=== PATIENT | male | born 1940 | race Hispanic/Latino ===

== ENCOUNTER 2016-06-22 09:05 | Emergency (ER) | payer MEDICARE ==
[2016-06-22 09:06] VITALS: BMI 23.6
[2016-06-22 09:57] VITALS: RESP 18; TEMP 98.2; O2SAT 100
[2016-06-22 10:36] LABS: ADD MANUAL DIFF? NO
--- NOTE | 2016-06-22 10:38 | ED PDOC ---
Arrival/HPI <Shanna Velasco PA-C - Last Filed: 06/22/16 11:18> - General Historian: Patient - History of Present Illness Time/Duration: < week Symptom Onset: Gradual Symptom Course: Worsening Severity Level: Mild Activities at Onset: Rest Context: Home <Daniel Keenan - Last Filed: 06/22/16 12:28> - General Chief Complaint: Weakness/Neurological Deficit Time Seen by Provider: 06/22/16 09:32 - History of Present Illness Narrative History of Present Illness (Text): Of note, patient is stating that he can not stay in the hospital for admission or observation to receive transfusion. (Shanna Velasco PA-C) 06/22/16 10:33 Fco Alvarez is a 76 year old male, whose past medical history includes anemia and GI bleeds, who presents to the emergency room complaining of generalized weakness for 2-3 days. Patient states that he has also been feeling tired. Patient notes that he has had eight transfusions in the past, the most recent one being 2 months ago. Patient hemoglobin levels are around 6. Patient also notes that his anemia is from the GI bleeds. He has had workups for it by a GI doctor with endoscopies and colonoscopies but a certain part of his colon just cannot get treated. Patient denies any dark stool, black stool, nausea, vomiting , abdominal pain, fever, or any other complaint at this time. (Daniel Keenan) Past Medical History - Provider Review Nursing Documentation Reviewed: Yes - Past History Past History: No Previous - Infectious Disease Hx of Infectious Diseases: None - Tetanus Immunization Tetanus Immunization: Unknown - Cardiac Hx Cardiac Disorders: Yes Hx Angina: Yes Hx CT: Yes (x 2) - Pulmonary Hx Respiratory Disorders: No - Neurological Hx Neurological Disorder: No - HEENT Hx HEENT Disorder: No - Renal Hx Renal Disorder: No - Endocrine/Metabolic Hx Endocrine Disorders: No - Hematological/Oncological Hx Blood Disorders: Yes Hx Anemia: Yes Hx Blood Transfusions: Yes Hx Blood Transfusion Reaction: No - Integumentary Hx Dermatological Disorder: No - Musculoskeletal/Rheumatological Hx Musculoskeletal Disorders: No - Gastrointestinal Hx Gastrointestinal Disorders: Yes Other/Comment: GI bleed - Genitourinary/Gynecological Hx Genitourinary Disorders: No - Psychiatric Hx Psychophysiologic Disorder: No Hx Substance Use: No - Surgical History 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) - Anesthesia Hx Anesthesia: Yes Hx Anesthesia Reactions: No Hx Malignant Hyperthermia: No - Suicidal Assessment Feels Threatened In Home Enviroment: No <Daniel Keenan - Last Filed: 06/22/16 12:28> Family/Social History - Physician Review Nursing Documentation Reviewed: Yes Family/Social History: No Known Family HX Smoking Status: Light Smoker < 10 Cigarettes Daily Hx Alcohol Use: Yes (social) Amount per day: 2 Hx Substance Use: No Hx Substance Use Treatment: No <Daniel Keenan - Last Filed: 06/22/16 12:28> Allergies/Home Meds <Shanna Velasco PA-C - Last Filed: 06/22/16 11:18> <Daniel Keenan - Last Filed: 06/22/16 12:28> Allergies/Adverse Reactions: Allergies shellfish derived Allergy (Severe, Verified 05/09/16 09:38) ANAPHYLAXIS iodine Allergy (Intermediate, Verified 05/09/16 09:38) SWELLING Iodine and Iodide Containing Produc Allergy (Intermediate, Verified 05/09/16 09: 38) SWELLING black pepper Allergy (Intermediate, Uncoded 05/09/16 09:38) SWELLING Home Medications: Home Meds Medication Instructions Recorded Confirmed Benazepril-Hctz 10-12.5 mg Tab 1 tab PO QAM 07/28/15 05/09/16 Lovastatin [Lovastatin] 20 mg PO QPM 07/28/15 05/09/16 Metoprolol Tartrate [Lopressor] 25 mg PO BID 07/28/15 05/09/16 raNITIdine 150 mg PO HS 12/20/15 05/09/16 Aspirin [Ecotrin] 81 mg PO DAILY 12/29/15 05/09/16 Docusate [Colace] 100 mg PO BID 02/12/16 05/09/16 Sucralfate [Carafate] 1 gm PO TID 02/12/16 05/09/16 Review of Systems - Review of Systems Constitutional: Other (Generalized weakness) Eyes: absent: Vision Changes ENT: absent: Hearing Changes Respiratory: absent: SOB, Cough Cardiovascular: absent: Chest Pain Gastrointestinal: absent: Abdominal Pain Genitourinary Male: absent: Urinary Output Changes Musculoskeletal: absent: Back Pain, Neck Pain Skin: absent: Rash Neurological: absent: Headache Endocrine: absent: Polyuria Hemo/Lymphatic: absent: Easy Bleeding Psychiatric: absent: Depression <Daniel Keenan - Last Filed: 06/22/16 12:28> Physical Exam Vital Signs Reviewed: Yes Temperature: Afebrile Blood Pressure: Normal Pulse: Tachycardic Respiratory Rate: Normal Appearance: Positive for: Well-Appearing, Non-Toxic, Comfortable Pain Distress: None Mental Status: Positive for: Alert and Oriented X 3 - Systems Exam Head: Present: Atraumatic, Normocephalic Pupils: Present: PERRL Extroacular Muscles: Present: EOMI Conjunctiva: Present: Other (conjunctiva pale) Mouth: Present: Moist Mucous Membranes Neck: Present: Normal Range of Motion Respiratory/Chest: Present: Clear to Auscultation, Good Air Exchange. No: Respiratory Distress, Accessory Muscle Use Cardiovascular: Present: Regular Rate and Rhythm, Normal S1, S2. No: Murmurs Abdomen: Present: Normal Bowel Sounds. No: Tenderness, Distention, Peritoneal Signs Back: Present: Normal Inspection Upper Extremity: Present: Normal Inspection. No: Cyanosis, Edema Lower Extremity: Present: Normal Inspection. No: Edema Neurological: Present: GCS=15, CN II-XII Intact, Speech Normal Skin: Present: Pale Psychiatric: Present: Alert, Oriented x 3, Normal Insight, Normal Concentration <Daniel Keenan - Last Filed: 06/22/16 12:28> Vital Signs Temp Pulse Resp BP Pulse Ox 06/22/16 11:30 91 H 18 149/71 100 06/22/16 09:54 98.2 F 64 18 147/69 100 06/22/16 09:21 98.6 F 91 H 20 133/68 99 Medical Decision Making <Shanna Velasco PA-C - Last Filed: 06/22/16 11:18> <Daniel Keenan - Last Filed: 06/22/16 12:28> ED Course and Treatment: 06/22/16 11:18 76 yo M presents with generalized weakness and fatigue, has a h/o anemia due to GI bleed. Patient is stating though that he can not stay in the hospital for admission or observation to receive transfusion. Plan: -- Labs CBC: Hgb is 6.3. Patient made aware, advised of the need for a transfusion and that he will need to stay for inpatient 24h observation in order to receive 2 units of PRBCs, which the patient is refusing to stay. States that his is sick at home and no one can care for her, he has no one he can call and attend to her while he stays in the hospital for 1 night to receive transfusion. States that he must leave and is refusing further treatment, which is against my medical advice. Patient refuses further care, evaluation or treatment in the ER. Patient informed of the reasons for the following and planned treatment, which patient understands, however still refuses. Patient informed of the risk and benefits of treatment. Informed that the risk could include worsening of current conditions, undiagnosed conditions, disability or even . Patient understands the following risk and the benefits of treatment. Patient has the capacity to make decisions and still refuses treatment by RN, ANTWON and ER MD. Patient encouraged to return to the ER at any time and to follow up with pmd. ( Rod NIXON,Shanna Tariq) - Lab Interpretations Lab Results: 06/22/16 09:50 06/22/16 09:50 Lab Results 06/22/16 09:50: WBC 5.2, RBC 2.62 L, Hgb 6.3 L*, Hct 20.7 L*, MCV 79.0 L, MCH 24.0 L, MCHC 30.4 L, RDW 17.6 H, Plt Count 212, MPV 10.1, Gran % 84.4 H, Lymph % (Auto) 8.5 L, Irwin % (Auto) 4.1, Eos % (Auto) 1.6, Baso % (Auto) 1.4, Gran # 4.36, Lymph # 0.4 L, Irwin # 0.2, Eos # 0.1, Baso # 0.07, Sodium 140, Potassium 3.7, Chloride 103, Carbon Dioxide 28, Anion Gap 13, BUN 26 H, Creatinine 1.4, Est GFR ( Amer) 60, Est GFR (Non-Af Amer) 49, Random Glucose 140 H, Calcium 9.3, Total Bilirubin 0.4, AST 19, ALT 13, Alkaline Phosphatase 73, Total Protein 7.6, Albumin 4.1, Globulin 3.5, Albumin/Globulin Ratio 1.2, Blood Type Cancelled, Antibody Screen Cancelled, BBK History Checked Cancelled - PA / DELINQUENT TAX COLLECTOR ASSISTANT / Resident Statement / has reviewed & agrees with the documentation as recorded. <Shanna Velasco PA-C - Last Filed: 06/22/16 11:18> - PA / DELINQUENT TAX COLLECTOR ASSISTANT / Resident Statement / has reviewed & agrees with the documentation as recorded. <Dainel Keenan - Last Filed: 06/22/16 12:28> Disposition/Present on Arrival - Present on Arrival Any Indicators Present on Arrival: No History of DVT/PE: No History of Uncontrolled Diabetes: No Urinary Catheter: No History of Decub. Ulcer: No - Disposition Have Diagnosis and Disposition been Completed?: Yes Disposition Time: 11:24 Patient Plan: Other (AMA) <Shanna Velasco PA-C - Last Filed: 06/22/16 11:18> - Present on Arrival History of DVT/PE: No History of Uncontrolled Diabetes: No Urinary Catheter: No History of Decub. Ulcer: No History Surgical Site Infection Following: None <Daniel Keenan - Last Filed: 06/22/16 12:28> - Disposition Diagnosis: Anemia, History of GI bleed Disposition: AGAINST MEDICAL ADVICE Condition: STABLE Discharge Instructions (ExitCare): Anemia (ED), Gastrointestinal Bleeding (ED) , Against Medical Advice (ED) Print Language: MACEDONIAN Additional Instructions: Return to the emergency room at any time for any new or worsening symptoms or if you decide to change your mind. Follow up with primary care physician in 1-2 days without fail.
[2016-06-22 10:41] LABS: BASO # 0.07 K/mm3 (0.0-2.0); BASO % 1.4 % (0.0-3.0); EOS # 0.1 (0.0-0.7); EOS % 1.6 % (1.5-5.0); GRAN # 4.36 (1.4-6.5); GRAN % 84.4 % (50.0-68.0); LYMPH # 0.4 (1.2-3.4); LYMPH % 8.5 % (22.0-35.0); MEAN CORPUSCULAR HGB CONC 30.4 g/dl (31.0-37.0); MEAN PLATELET VOLUME 10.1 fl (7.0-11.0); MONO # 0.2 (0.1-0.6); MONO % 4.1 % (1.0-6.0); PLATELET COUNT 212 10^3/uL (120.0-450.0); RED CELL DISTRIBUTION WIDTH 17.6 % (11.5-14.5); WHITE BLOOD COUNT 5.2 10^3/ul (4.5-11.0)
[2016-06-22 10:57] LABS: ALB/GLOB RATIO 1.2 (1.1-1.8); BILIRUBIN,TOTAL 0.4 mg/dL (0.2-1.3); CALCIUM 9.3 mg/dL (8.4-10.5); POTASSIUM 3.7 mmol/L (3.6-5.0); TOTAL PROTEIN 7.6 g/dL (5.8-8.3)
[2016-06-22 10:58] LABS: HEMATOCRIT 20.7 % (42.0-52.0)
[2016-06-22 11:30] VITALS: BP 149/71; PULSE 91
[2016-06-22 13:49] LABS: EOSINOPHIL 3 % (0.0-3.0); NEUTROPHIL 85 % (50.0-70.0)
[2016-06-22 13:50] LABS: ANISOCYTOSIS SLIGHT; HYPOCHROMIA 2+; MICROCYTOSIS 3+; PLATELET ESTIMATE NORMAL (NORMAL); POLYCHROMASIA SLIGHT
[2016-06-22 13:51] LABS: OVALOCYTES SLIGHT
== END 2016-06-22 11:31 | disposition left against medical advice (07) ==
LOC: ED 09:05
DX: D64.9 Anemia, unspecified (principal); K92.2 Gastrointestinal hemorrhage, unspecified

== ENCOUNTER 2016-06-22 18:07 | Observation (INO) | payer MEDICARE ==
[2016-06-22 18:08] VITALS: BMI 23.6
--- NOTE | 2016-06-22 19:03 | ED PDOC ---
Arrival/HPI - General Chief Complaint: Medical Clearance Time Seen by Provider: 06/22/16 18:10 Historian: Patient - History of Present Illness Narrative History of Present Illness (Text): 06/22/16 18:30 Fco Alvarez is a 76 year old male whose past medical history includes Anemia & GI Bleed (Unknown Source), who presents to the ED for a blood transfusion. Patient has been feeling generally weak for the past 2-3 days and had blood work done which showed Hgb levels of 6.2. Patient otherwise denies any other complaints. PMD: Beau Baez MD Time/Duration: < week (2-3 days) Symptom Onset: Gradual Symptom Course: Unchanged Activities at Onset: Light Context: Home Past Medical History - Provider Review Nursing Documentation Reviewed: Yes - Past History Past History: No Previous - Infectious Disease Hx of Infectious Diseases: None - Tetanus Immunization Tetanus Immunization: Unknown - Cardiac Hx Cardiac Disorders: Yes Hx Angina: Yes Hx AL: Yes (x 2) - Pulmonary Hx Respiratory Disorders: No - Neurological Hx Neurological Disorder: No - HEENT Hx HEENT Disorder: No - Renal Hx Renal Disorder: No - Endocrine/Metabolic Hx Endocrine Disorders: No - Hematological/Oncological Hx Blood Disorders: Yes Hx Anemia: Yes Hx Blood Transfusions: Yes Hx Blood Transfusion Reaction: No - Integumentary Hx Dermatological Disorder: No - Musculoskeletal/Rheumatological Hx Musculoskeletal Disorders: No - Gastrointestinal Hx Gastrointestinal Disorders: Yes Other/Comment: GI bleed - Genitourinary/Gynecological Hx Genitourinary Disorders: No - Psychiatric Hx Psychophysiologic Disorder: No Hx Substance Use: No - Surgical History 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) - Anesthesia Hx Anesthesia: Yes Hx Anesthesia Reactions: No Hx Malignant Hyperthermia: No - Suicidal Assessment Feels Threatened In Home Enviroment: No Family/Social History - Physician Review Nursing Documentation Reviewed: Yes Family/Social History: No Known Family HX Smoking Status: Light Smoker < 10 Cigarettes Daily Hx Alcohol Use: Yes (social) Amount per day: 2 Hx Substance Use: No Hx Substance Use Treatment: No Allergies/Home Meds Allergies/Adverse Reactions: Allergies shellfish derived Allergy (Severe, Verified 06/22/16 18:23) ANAPHYLAXIS iodine Allergy (Intermediate, Verified 06/22/16 18:23) SWELLING Iodine and Iodide Containing Produc Allergy (Intermediate, Verified 06/22/16 18: 23) SWELLING black pepper Allergy (Intermediate, Uncoded 06/22/16 18:23) SWELLING Home Medications: Home Meds Medication Instructions Recorded Confirmed Benazepril-Hctz 10-12.5 mg Tab 1 tab PO QAM 07/28/15 06/22/16 Lovastatin [Lovastatin] 20 mg PO QPM 07/28/15 06/22/16 Metoprolol Tartrate [Lopressor] 25 mg PO BID 07/28/15 06/22/16 raNITIdine 150 mg PO HS 12/20/15 06/22/16 Aspirin [Ecotrin] 81 mg PO DAILY 12/29/15 06/22/16 Docusate [Colace] 100 mg PO BID 02/12/16 06/22/16 Sucralfate [Carafate] 1 gm PO TID 02/12/16 06/22/16 Review of Systems - Physician Review All systems were reviewed & negative as marked: Yes - Review of Systems Constitutional: Other (Generalized Weakness). absent: Fevers Eyes: Normal ENT: Normal Respiratory: Normal. absent: SOB, Cough Cardiovascular: Normal. absent: Chest Pain Gastrointestinal: Normal. absent: Abdominal Pain, Diarrhea, Nausea, Vomiting Genitourinary Male: Normal. absent: Dysuria, Frequency, Hematuria, Urinary Output Changes Musculoskeletal: Normal. absent: Back Pain, Neck Pain Skin: Normal Neurological: Normal. absent: Headache, Dizziness Endocrine: Normal Hemo/Lymphatic: Normal Psychiatric: Normal Physical Exam Vital Signs Reviewed: Yes Vital Signs Temp Pulse Resp BP Pulse Ox 06/22/16 20:20 86 18 140/75 100 06/22/16 18:24 98.6 F 94 H 18 162/74 H 99 Temperature: Afebrile Blood Pressure: Hypertensive Pulse: Tachycardic Respiratory Rate: Normal Appearance: Positive for: Well-Appearing, Non-Toxic, Comfortable Pain Distress: None Mental Status: Positive for: Alert and Oriented X 3 - Systems Exam Head: Present: Atraumatic, Normocephalic Pupils: Present: PERRL, Other (Conjunctiva Palor) Extroacular Muscles: Present: EOMI Conjunctiva: Present: Normal Mouth: Present: Moist Mucous Membranes Neck: Present: Normal Range of Motion Respiratory/Chest: Present: Clear to Auscultation, Good Air Exchange. No: Respiratory Distress, Accessory Muscle Use Cardiovascular: Present: Regular Rate and Rhythm, Murmurs (Aortic Systolic Murmur), Normal S1, S2, Other (Sternal Surgical Scar) Abdomen: Present: Normal Bowel Sounds. No: Tenderness, Distention, Peritoneal Signs Back: Present: Normal Inspection Upper Extremity: Present: Normal Inspection. No: Cyanosis, Edema Lower Extremity: Present: Normal Inspection. No: Edema Neurological: Present: GCS=15, CN II-XII Intact, Speech Normal Skin: Present: Warm, Dry, Normal Color. No: Rashes Psychiatric: Present: Alert, Oriented x 3, Normal Insight, Normal Concentration Medical Decision Making ED Course and Treatment: 06/22/16 18:30 Impression: 76 year old male presenting for blood transfusion after blood work showed Hgb levels of 6.2. Plan: -- Labs, Troponin -- Type and Screen -- Reassess and disposition Progress Notes: 06/22/16 19:[address] Nettie Baez who is aware of plan to transfuse patient in the Emergency department. - Lab Interpretations Lab Results: 06/22/16 19:00 06/22/16 19:00 Lab Results 06/22/16 19:00: WBC 5.7, RBC 2.80 L, Hgb 6.7 L*, Hct 21.9 L, MCV 78.2 L, MCH 23.9 L, MCHC 30.6 L, RDW 17.7 H, Plt Count 217, MPV 9.9, Gran % 77.7 H, Lymph % (Auto) 14.1 L, Page % (Auto) 5.9, Eos % (Auto) 1.4 L, Baso % (Auto) 0.9, Gran # 4.46, Lymph # 0.8 L, Page # 0.3, Eos # 0.1, Baso # 0.05, PT 10.5, INR 0.97, APTT 22.4 L, Sodium 141, Potassium 3.6, Chloride 102, Carbon Dioxide 28, Anion Gap 15, BUN 27 H, Creatinine 1.5 H, Est GFR ( Amer) 55, Est GFR (Non-Af Amer) 46, Random Glucose 110, Calcium 9.7, Total Bilirubin 0.4, AST 21, ALT 14, Alkaline Phosphatase 83, Troponin I 0.02, Total Protein 8.0, Albumin 4.4, Globulin 3.6, Albumin/Globulin Ratio 1.2, Blood Type A POSITIVE, Antibody Screen Negative, Crossmatch See Detail, BBK History Checked Patient has bt I have reviewed the lab results: Yes ED OBSERVATION Discharge: Yes Date of observation admission: 06/22/16 Time of observation admission: 18:30 - Observation admission statement Patient is being placed in observation because:: Blood Transfusion - Goals of Observation Goals of observation are:: Reassess and Disposition - Scribe Statement The provider has reviewed the documentation as recorded by the Coltonibseferino Wolff Provider Attestation: All medical record entries made by the Shadi were at my direction and personally dictated by me. I have reviewed the chart and agree that the record accurately reflects my personal performance of the history, physical exam, medical decision making, and the department course for this patient. I have also personally directed, reviewed, and agree with the discharge instructions and disposition. Disposition/Present on Arrival - Present on Arrival Any Indicators Present on Arrival: No History of DVT/PE: No History of Uncontrolled Diabetes: No Urinary Catheter: No History of Decub. Ulcer: No History Surgical Site Infection Following: None - Disposition Have Diagnosis and Disposition been Completed?: Yes Diagnosis: Anemia Disposition: HOSPITALIZED Disposition Time: 18:45 Condition: STABLE
[2016-06-22 19:33] LABS: ADD MANUAL DIFF? NO
[2016-06-22 19:43] LABS: BASO # 0.05 K/mm3 (0.0-2.0); BASO % 0.9 % (0.0-3.0); EOS # 0.1 (0.0-0.7); EOS % 1.4 % (1.5-5.0); GRAN # 4.46 (1.4-6.5); GRAN % 77.7 % (50.0-68.0); LYMPH # 0.8 (1.2-3.4); LYMPH % 14.1 % (22.0-35.0); MEAN CELL VOLUME 78.2 fL (80.0-105.0); MEAN CORPUSCULAR HEMOGLOBIN 23.9 pg (25.0-35.0); MEAN CORPUSCULAR HGB CONC 30.6 g/dl (31.0-37.0); MEAN PLATELET VOLUME 9.9 fl (7.0-11.0); MONO # 0.3 (0.1-0.6); MONO % 5.9 % (1.0-6.0); PLATELET COUNT 217 10^3/uL (120.0-450.0); RED CELL DISTRIBUTION WIDTH 17.7 % (11.5-14.5); WHITE BLOOD COUNT 5.7 10^3/ul (4.5-11.0)
[2016-06-22 19:52] LABS: INR 0.97 (0.93-1.08); PARTIAL THROMBOPLASTIN TIME 22.4 Seconds (23.7-30.8)
[2016-06-22 19:54] LABS: HEMATOCRIT 21.9 % (42.0-52.0)
[2016-06-22 19:58] LABS: ALB/GLOB RATIO 1.2 (1.1-1.8); BILIRUBIN,TOTAL 0.4 mg/dL (0.2-1.3); CALCIUM 9.7 mg/dL (8.4-10.5); POTASSIUM 3.6 mmol/L (3.6-5.0)
[2016-06-22 20:06] LABS: TROPONIN I 0.02 ng/mL
[2016-06-22 20:21] VITALS: O2SAT 100
[2016-06-22 22:18] VITALS: RESP 20
[2016-06-23 03:17] VITALS: BP 178/82; PULSE 85; TEMP 97.9
== END 2016-06-23 03:10 | disposition left against medical advice (07) ==
LOC: ED 18:07 → ERH 19:06 → 5RSO 21:18
PROVIDERS: ADMIT Internal Medicine; ATTEND Internal Medicine
DX: D64.9 Anemia, unspecified (principal); I25.2 Old myocardial infarction; Z95.1 Presence of aortocoronary bypass graft; Z79.82 Long term (current) use of aspirin
CPT/HCPCS: 36430; 80053; 84484; 85025; 85610; 85730; 86850; 86900; 86920; 99285; G0378; P9016

== ENCOUNTER 2016-07-06 13:02 | Emergency (ER) | payer MEDICARE ==
[2016-07-06 13:03] VITALS: BMI 23.6
== END 2016-07-06 13:18 | disposition left against medical advice (07) ==
LOC: ED 13:02
DX: Z02.89 Encounter for other administrative examinations (principal); R10.9 Unspecified abdominal pain

== ENCOUNTER 2016-07-14 11:34 | Emergency (ER) | payer MEDICARE ==
[2016-07-14 11:35] VITALS: BMI 23.6
--- NOTE | 2016-07-14 12:19 | ED PDOC ---
Arrival/HPI - General Chief Complaint: Abnormal Labs Time Seen by Provider: 07/14/16 11:59 Historian: Patient - History of Present Illness Narrative History of Present Illness (Text): 07/14/16 12:05 A 76 year old male, whose past medical history includes Anemia and GI bleeding, presents to the emergency department complaining of a low blood count. Patient reports he believed his blood count is really low because he has been feeling generally weak for the past few days. He denies any syncopal episodes, chest pain, shortness of breath, abdominal pain, nausea, vomiting, change in stool, or any other complaints at this time. PMD: Dr. Baez Time/Duration: Other (2 days) Symptom Onset: Sudden Symptom Course: Unchanged Quality: Other Activities at Onset: Rest Context: Home Past Medical History - Provider Review Nursing Documentation Reviewed: Yes - Past History Past History: No Previous - Infectious Disease Hx of Infectious Diseases: None - Tetanus Immunization Tetanus Immunization: Unknown - Cardiac Hx Cardiac Disorders: Yes Hx Angina: Yes Hx [place]: Yes (x 2) - Pulmonary Hx Respiratory Disorders: No - Neurological Hx Neurological Disorder: No - HEENT Hx HEENT Disorder: No - Renal Hx Renal Disorder: No - Endocrine/Metabolic Hx Endocrine Disorders: No - Hematological/Oncological Hx Anemia: Yes - Integumentary Hx Dermatological Disorder: No - Musculoskeletal/Rheumatological Hx Falls: No - Gastrointestinal Hx Gastrointestinal Disorders: Yes Other/Comment: GI bleed - Genitourinary/Gynecological Hx Genitourinary Disorders: No - Psychiatric Hx Psychophysiologic Disorder: No Hx Substance Use: No - Surgical History 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) - Anesthesia Hx Anesthesia: Yes Hx Anesthesia Reactions: No Hx Malignant Hyperthermia: No - Suicidal Assessment Feels Threatened In Home Enviroment: No Family/Social History - Physician Review Nursing Documentation Reviewed: Yes Family/Social History: Unknown Family HX Smoking Status: Light Smoker < 10 Cigarettes Daily Hx Alcohol Use: Yes (social) Amount per day: 2 Hx Substance Use: No Hx Substance Use Treatment: No Allergies/Home Meds Allergies/Adverse Reactions: Allergies shellfish derived Allergy (Severe, Verified 07/14/16 11:57) ANAPHYLAXIS iodine Allergy (Intermediate, Verified 07/14/16 11:57) SWELLING Iodine and Iodide Containing Produc Allergy (Intermediate, Verified 07/14/16 11: 57) SWELLING black pepper Allergy (Intermediate, Uncoded 07/14/16 11:57) SWELLING Home Medications: Home Meds Medication Instructions Recorded Confirmed Benazepril-Hctz 10-12.5 mg Tab 1 tab PO QAM 07/28/15 06/22/16 Lovastatin [Lovastatin] 20 mg PO QPM 07/28/15 06/22/16 Metoprolol Tartrate [Lopressor] 25 mg PO BID 07/28/15 06/22/16 raNITIdine 150 mg PO HS 12/20/15 06/22/16 Aspirin [Ecotrin] 81 mg PO DAILY 12/29/15 06/22/16 Docusate [Colace] 100 mg PO BID 02/12/16 06/22/16 Sucralfate [Carafate] 1 gm PO TID 02/12/16 06/22/16 Review of Systems - Physician Review All systems were reviewed & negative as marked: Yes - Review of Systems Constitutional: Fatigue. absent: Fevers Respiratory: absent: SOB Cardiovascular: absent: Chest Pain Gastrointestinal: absent: Abdominal Pain, Stool Changes, Nausea, Vomiting Physical Exam Vital Signs Reviewed: Yes Vital Signs Temp Pulse Resp BP Pulse Ox 07/14/16 17:35 98 F 89 19 151/78 H 07/14/16 16:52 92 H 16 163/76 H 100 07/14/16 15:44 98.4 F 85 16 124/61 07/14/16 14:59 98.9 F 88 16 145/65 07/14/16 14:44 99 F 85 16 150/80 07/14/16 14:43 99 F 89 16 150/80 07/14/16 14:41 85 19 150/80 100 07/14/16 12:34 83 16 130/70 100 07/14/16 11:53 98.4 F 89 18 162/69 H 98 Temperature: Afebrile Blood Pressure: Hypertensive Pulse: Regular Respiratory Rate: Normal Appearance: Positive for: Well-Appearing, Non-Toxic, Comfortable Pain Distress: None Mental Status: Positive for: Alert and Oriented X 3 - Systems Exam Head: Present: Atraumatic, Normocephalic Pupils: Present: PERRL Extroacular Muscles: Present: EOMI Conjunctiva: Present: Other (pale) Mouth: Present: Moist Mucous Membranes Neck: Present: Normal Range of Motion Respiratory/Chest: Present: Clear to Auscultation, Good Air Exchange. No: Respiratory Distress, Accessory Muscle Use Cardiovascular: Present: Regular Rate and Rhythm, Murmurs, Normal S1, S2 Abdomen: Present: Normal Bowel Sounds. No: Tenderness, Distention, Peritoneal Signs Back: Present: Normal Inspection Upper Extremity: Present: Normal Inspection. No: Cyanosis, Edema Lower Extremity: Present: Normal Inspection. No: Edema Neurological: Present: GCS=15, CN II-XII Intact, Speech Normal Skin: Present: Warm, Dry, Normal Color. No: Rashes Psychiatric: Present: Alert, Oriented x 3, Normal Insight, Normal Concentration Medical Decision Making ED Course and Treatment: 07/14/16 12:05 Impression: A 76 year old male with a history of anemia complaining of a low blood count. Differential Diagnosis include but are not limited to: Anemia Plan: -- EKG -- Chest X-ray -- Labs -- Reassess and disposition Prior Visits: Notes and results from previous visits were reviewed. The patient last presented to the emergency department on 06/22/16 for need of blood transfusion. Progress Notes: EKG: Ordered, reviewed, and independently interpreted the EKG. Rate : 85 BPM Rhythm : ectopic atrial rhythm Interpretation : no ST elevations, nonspecific ST/T changes, normal intervals, normal axis. Comparison : No change from previous EKG on 05/09/16 for comparison. 07/14/16 12:43 Chest X-ray: As read by Dr. Vázquez, No active disease. 07/14/16 12:52 Patient's hemoglobin count is 7.2. Packed Cells ordered for blood transfusion. 07/14/16 14:46 Patient will need 2 units of packed RBC, however patient is refusing to stay in the hospital for transfusion. Will start first unit in the emergency department. 07/14/16 17:36 Patient received 1 unit of blood in the emergency department and is now choosing to leave against medical advice. Leaving Against Medical Advice (AMA): The patient is choosing to leave against medical advice. I have personally explained to the patient that choosing to do so may result in permanent bodily harm or . I have discussed at great length that without further evaluation and monitoring there may be unforeseen circumstances and/or deterioration causing permanent bodily harm or as a result of their choice. The patient is alert, oriented, and shows the mental capacity to make clear decisions regarding the patients health care at this time. The patient continues to wish to leave against medical advice. The patient has been advised that they should return to the emergency room immediately if they change their mind at any time, or if their condition begins to change or worsen in any way. He has been advised to otherwise follow up with his primary care doctor as soon as possible. 07/14/16 17:39 Patient signed ama form. - Lab Interpretations Lab Results: 07/14/16 12:37 07/14/16 12:37 Lab Results 07/14/16 13:32: Blood Type A POSITIVE, Antibody Screen Negative, Crossmatch See Detail, BBK History Checked Patient has bt 07/14/16 12:37: WBC 5.2, RBC 2.90 L, Hgb 7.2 L, Hct 23.3 L, MCV 80.3, MCH 24.8 L , MCHC 30.9 L, RDW 18.5 H, Plt Count 211, MPV 9.6, Gran % 80.9 H, Lymph % (Auto ) 10.6 L, [place] % (Auto) 6.7 H, Eos % (Auto) 1.0 L, Baso % (Auto) 0.8, Gran # 4.20, Lymph # 0.6 L, [place] # 0.4, Eos # 0.1, Baso # 0.04, PT 10.5, INR 0.97, APTT 24.7, Sodium 139, Potassium 3.9, Chloride 103, Carbon Dioxide 26, Anion Gap 14, BUN 23 H, Creatinine 1.4, Est GFR ( Amer) 60, Est GFR (Non-Af Amer) 49, Random Glucose 129 H, Calcium 9.3, Total Bilirubin 0.4, AST 21, ALT 19 , Alkaline Phosphatase 78, Lactate Dehydrogenase 439, Total Creatine Kinase 51, Troponin I < 0.01 D, Total Protein 7.7, Albumin 4.2, Globulin 3.4, Albumin/ Globulin Ratio 1.2, Amylase 56, Lipase 102 I have reviewed the lab results: Yes - RAD Interpretation Radiology Orders: 07/14/16 12:09 CHEST PORTABLE [RAD] Stat - Scribe Statement The provider has reviewed the documentation as recorded by the Coltonibseferino Trujillo Provider Scribe Attestation: All medical record entries made by the Scribe were at my direction and personally dictated by me. I have reviewed the chart and agree that the record accurately reflects my personal performance of the history, physical exam, medical decision making, and the department course for this patient. I have also personally directed, reviewed, and agree with the discharge instructions and disposition. Disposition/Present on Arrival - Present on Arrival Any Indicators Present on Arrival: No History of DVT/PE: No History of Uncontrolled Diabetes: No Urinary Catheter: No History of Decub. Ulcer: No History Surgical Site Infection Following: None - Disposition Have Diagnosis and Disposition been Completed?: Yes Diagnosis: Symptomatic anemia Disposition: AGAINST MEDICAL ADVICE Disposition Time: 17:40 Patient Plan: Other (AMA) Condition: UNKNOWN Additional Instructions: You are leaving the hospital against medical advice. You may return to the hospital at any time. If you choose not to do so, recommend following up with your primary care doctor as soon as possible. Referrals: Beau Baez MD [Staff Provider] - Follow up with primary
--- NOTE | 2016-07-14 12:31 | RAD ---
HISTORY: fatigue, anemia COMPARISON: 02/18/2016 FINDINGS: LUNGS: No active pulmonary disease. PLEURA: No significant pleural effusion identified, no pneumothorax apparent. CARDIOVASCULAR: Normal. OSSEOUS STRUCTURES: Sternal wires VISUALIZED UPPER ABDOMEN: Normal. OTHER FINDINGS: None. IMPRESSION: No active disease.
[2016-07-14 12:35] VITALS: O2SAT 100
[2016-07-14 12:38] LABS: ADD MANUAL DIFF? NO
[2016-07-14 12:50] LABS: BASO # 0.04 K/mm3 (0.0-2.0); BASO % 0.8 % (0.0-3.0); EOS # 0.1 (0.0-0.7); GRAN % 80.9 % (50.0-68.0); LYMPH # 0.6 (1.2-3.4); LYMPH % 10.6 % (22.0-35.0); MEAN CELL VOLUME 80.3 fL (80.0-105.0); MEAN CORPUSCULAR HEMOGLOBIN 24.8 pg (25.0-35.0); MEAN CORPUSCULAR HGB CONC 30.9 g/dl (31.0-37.0); MEAN PLATELET VOLUME 9.6 fl (7.0-11.0); MONO # 0.4 (0.1-0.6); MONO % 6.7 % (1.0-6.0); PLATELET COUNT 211 10^3/uL (120.0-450.0); RED CELL DISTRIBUTION WIDTH 18.5 % (11.5-14.5); WHITE BLOOD COUNT 5.2 10^3/ul (4.5-11.0)
[2016-07-14 12:52] LABS: HEMATOCRIT 23.3 % (42.0-52.0)
[2016-07-14 12:57] LABS: ALB/GLOB RATIO 1.2 (1.1-1.8); ALKALINE PHOSPHATASE 78 U/L (38-133); ALT/SGPT 19 U/L (7-56); AMYLASE 56 U/L (35-125); AST/SGOT 21 U/L (15-59); BILIRUBIN,TOTAL 0.4 mg/dL (0.2-1.3); BLOOD UREA NITROGEN 23 mg/dL (7-21); CALCIUM 9.3 mg/dL (8.4-10.5); CARBON DIOXIDE 26 mmol/L (21-33); CHLORIDE 103 mmol/L (98-107); GFR AFRICAN-AMERICAN 60; GLUCOSE,RANDOM 129 mg/dL (70-110); LIPASE 102 U/L (23-300); POTASSIUM 3.9 mmol/L (3.6-5.0); SODIUM 139 mmol/L (132-148); TOTAL PROTEIN 7.7 g/dL (5.8-8.3)
[2016-07-14 13:00] LABS: INR 0.97 (0.93-1.08); PARTIAL THROMBOPLASTIN TIME 24.7 Seconds (23.7-30.8)
[2016-07-14 13:09] LABS: TROPONIN I < 0.01 ng/mL
[2016-07-14 17:36] VITALS: BP 151/78; PULSE 89; TEMP 98
[2016-07-14 18:06] VITALS: RESP 16
--- NOTE | 2016-07-15 16:37 | CARD ---
APPROVED REPORT EKG Measurement Heart [id number] <Conclusion> Unusual P axis, possible ectopic atrial rhythm Nonspecific ST and T wave abnormality Abnormal ECG
== END 2016-07-14 18:06 | disposition left against medical advice (07) ==
LOC: ED 11:34
DX: D64.9 Anemia, unspecified (principal); K92.2 Gastrointestinal hemorrhage, unspecified; I20.9 Angina pectoris, unspecified; Z72.0 Tobacco use
CPT/HCPCS: 36430; 71010; 80053; 82150; 82550; 83615; 83690; 84484; 85025; 85610; 85730; 86850; 86900; 86920; 93005; 99284; P9016

== ENCOUNTER 2016-08-02 11:51 | Emergency (ER) | payer MEDICARE ==
[2016-08-02 12:12] VITALS: O2SAT 99
[2016-08-02 12:13] VITALS: BMI 22.8
[2016-08-02] MEDS ORDERED: Sodium Chloride 0.9% 500 ML IV STA (12:31)
--- NOTE | 2016-08-02 12:57 | RAD ---
HISTORY: cough COMPARISON: 07/14/2016 FINDINGS: LUNGS: No active pulmonary disease. PLEURA: No significant pleural effusion identified, no pneumothorax apparent. CARDIOVASCULAR: Normal. OSSEOUS STRUCTURES: Sternal wires VISUALIZED UPPER ABDOMEN: Normal. OTHER FINDINGS: None. IMPRESSION: No active disease.
[2016-08-02 13:16] LABS: ADD MANUAL DIFF? NO
--- NOTE | 2016-08-02 13:17 | ED PDOC ---
Arrival/HPI - General Chief Complaint: Abnormal Labs Time Seen by Provider: 08/02/16 12:29 Historian: Patient - History of Present Illness Narrative History of Present Illness (Text): 08/02/16 13:13 A 76 year old male, whose past medical history includes Anemia, presents to the emergency room with complaints of weakness since yesterday. Patient reports that this feels like his previous Anemia symptoms. Patient also notes that his stool has recently been darker than usual. Patient denies any chest pain, shortness of breath, dyspnea on exertion, nausea, vomiting, diarrhea, or any other complaints. PMD: Dr. Baez Time/Duration: 24 hours Symptom Onset: Sudden Symptom Course: Unchanged Activities at Onset: Light Context: Home Past Medical History - Provider Review Nursing Documentation Reviewed: Yes - Past History Past History: No Previous - Infectious Disease Hx of Infectious Diseases: None - Tetanus Immunization Tetanus Immunization: Unknown - Cardiac Hx Cardiac Disorders: Yes Hx Angina: Yes Hx [place]: Yes (x 2) - Pulmonary Hx Respiratory Disorders: No - Neurological Hx Neurological Disorder: No - HEENT Hx HEENT Disorder: No - Renal Hx Renal Disorder: No - Endocrine/Metabolic Hx Endocrine Disorders: No - Hematological/Oncological Hx Anemia: Yes - Integumentary Hx Dermatological Disorder: No - Musculoskeletal/Rheumatological Hx Falls: No - Gastrointestinal Hx Gastrointestinal Disorders: Yes Other/Comment: GI bleed - Genitourinary/Gynecological Hx Genitourinary Disorders: No - Psychiatric Hx Psychophysiologic Disorder: No Hx Substance Use: No - Surgical History 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) - Anesthesia Hx Anesthesia: Yes Hx Anesthesia Reactions: No Hx Malignant Hyperthermia: No - Suicidal Assessment Feels Threatened In Home Enviroment: No Family/Social History - Physician Review Nursing Documentation Reviewed: Yes Family/Social History: No Known Family HX Smoking Status: Light Smoker < 10 Cigarettes Daily Hx Alcohol Use: Yes (social) Amount per day: 2 Hx Substance Use: No Hx Substance Use Treatment: No Allergies/Home Meds Allergies/Adverse Reactions: Allergies shellfish derived Allergy (Severe, Verified 08/02/16 12:13) ANAPHYLAXIS iodine Allergy (Intermediate, Verified 08/02/16 12:13) SWELLING Iodine and Iodide Containing Produc Allergy (Intermediate, Verified 08/02/16 12: 13) SWELLING black pepper Allergy (Intermediate, Uncoded 08/02/16 12:13) SWELLING Home Medications: Home Meds Medication Instructions Recorded Confirmed Benazepril-Hctz 10-12.5 mg Tab 1 tab PO QAM 07/28/15 06/22/16 Lovastatin [Lovastatin] 20 mg PO QPM 07/28/15 06/22/16 Metoprolol Tartrate [Lopressor] 25 mg PO BID 07/28/15 06/22/16 raNITIdine 150 mg PO HS 12/20/15 06/22/16 Aspirin [Ecotrin] 81 mg PO DAILY 12/29/15 06/22/16 Docusate [Colace] 100 mg PO BID 02/12/16 06/22/16 Sucralfate [Carafate] 1 gm PO TID 02/12/16 06/22/16 Physical Exam - Physical Exam Narrative Physical Exam (Text): 08/02/16 13:18 - Review of Systems Constitutional: Weakness absent: Fatigue, Weight Change, Fevers Eyes: Normal ENT: Normal Respiratory: Normal absent: SOB, Cough, Sputum Cardiovascular: Normal absent: Chest pain, Palpitations, Syncope Gastrointestinal: Stool has been darker than usual absent: Abdominal pain, Diarrhea, Nausea, Vomiting Genitourinary: Normal. absent: Dysuria, Frequency, Hematuria Musculoskeletal: Normal. absent: Arthralgias, Back Pain, Neck Pain Skin: Normal Neurological: Normal absent: Focal Weakness Endocrine: Normal Hemo/Lymphatic: Normal Psychiatric: Normal - Physical exam Patient appears age appropriate, speaking full sentences without difficulty - Systems Exam Head: Present: Atraumatic, Normocephalic Pupils: Present: PERRL Extraocular Muscles: Present: EOMI Conjunctiva: Present: Normal Mouth: Present: Moist Mucous Membranes Neck: Present: Normal Range of Motion. No: MIDLINE TENDERNESS, Paraspinal Tenderness Respiratory/Chest: Present: Clear to Auscultation, Good Air Exchange. No: Respiratory Distress, Accessory Muscle Use, Tachypneic Cardiovascular: Present: Regular Rate and Rhythm, Normal S1, S2, Peripheral Pulses Present. No: Murmurs Abdomen: Present: Normal Bowel Sounds, No: Tenderness, Peritoneal Signs, Rebound, Guarding, Distention Back: Present: Normal Inspection. No: Midline Tenderness, Paraspinal Tenderness Upper Extremity: Present: Normal Inspection. No: Cyanosis, Edema Lower Extremity: Present: Normal Inspection. No: Edema Neurological: Present: GCS=15, Speech Normal, cranial nerves II through XII fully intact with no cerebellar abnormality, neuro-sensory fully intact. No focal neurological deficits. Skin: Present: Warm, Dry, Normal Color. No: Rashes Lymphatic: Present: OX3, NI, NC Psychiatric: Present: Alert, Oriented x 3, Normal Insight, Normal Concentration Vital Signs Reviewed: Yes Vital Signs Temp Pulse Resp BP Pulse Ox 08/02/16 12:11 98.0 F 67 18 131/71 99 Temperature: Afebrile Blood Pressure: Normal Pulse: Regular Respiratory Rate: Normal Appearance: Positive for: Well-Appearing, Non-Toxic, Comfortable Pain Distress: None Mental Status: Positive for: Alert and Oriented X 3 Medical Decision Making ED Course and Treatment: 08/02/16 13:19 Impression: A 76 year old male with weakness similar to previous episodes of Anemia. No acute findings on examination. Differential Diagnosis included but are not limited to: Anemia Plan: -- EKG -- Chest X-ray -- Labs/Urinalysis -- Protonix -- Reassess and disposition Prior Visits: Notes and results from previous visits were reviewed. Patient was last in the emergency department on 07/14/16 for a blood transfusion. Progress Notes: 08/02/16 13:34 CXR Impression: As read by Dr. Vázquez, no active disease. EKG: Ordered, reviewed, and independently interpreted the EKG. Rate : 80 BPM Rhythm : NSR Interpretation : No ST-segment elevations, normal intervals, some lateral ST depressions. Comparison: No changes vs. previous EKG. 08/02/16 14:[address] Joaquim Baez, who is aware of and agrees with telemetry disposition plan. Patient agrees with disposition. - Critical Care Critical Care Minutes: 30 minutes - Lab Interpretations Lab Results: 08/02/16 12:30 08/02/16 12:30 Lab Results 08/02/16 12:55: Blood Type Pending, Antibody Screen Pending, BBK History Checked Patient has bt 08/02/16 12:30: TIBC 429 08/02/16 12:30: PT 10.7, INR 0.99, APTT 24.2 08/02/16 12:30: WBC 4.9, RBC 2.68 L, Hgb 6.5 L*, Hct 21.3 L, MCV 79.5 L, MCH 24.3 L, MCHC 30.5 L, RDW 18.6 H, Plt Count 209, MPV 10.4, Gran % 78.1 H, Lymph % (Auto) 11.9 L, [place] % (Auto) 7.4 H, Eos % (Auto) 1.0 L, Baso % (Auto) 1.6, Gran # 3.81, Lymph # 0.6 L, [place] # 0.4, Eos # 0.1, Baso # 0.08 08/02/16 12:30: Sodium 140, Potassium 4.2, Chloride 102, Carbon Dioxide 26, Anion Gap 16, BUN 26 H, Creatinine 1.5 H, Est GFR ( Amer) 55, Est GFR ( Non-Af Amer) 46, Random Glucose 121 H, Calcium 9.4, Ferritin Pending, Total Bilirubin 0.6, AST 19, ALT 25, Alkaline Phosphatase 76, Lactate Dehydrogenase 437, Total Creatine Kinase 71, Troponin I 0.02 D, Total Protein 7.5, Albumin 4.1, Globulin 3.3, Albumin/Globulin Ratio 1.2 I have reviewed the lab results: Yes - RAD Interpretation Radiology Orders: 08/02/16 12:30 CHEST PORTABLE [RAD] Stat - Medication Orders Current Medication Orders: Discontinued Medications Sodium Chloride (Sodium Chloride 0.9%) 500 mls @ 1,000 mls/hr IV .Q30M STA Stop: 08/02/16 13:00 Last Admin: 08/02/16 13:00 Dose: 1,000 mls/hr Pantoprazole Sodium (Protonix Inj) 40 mg IVP STAT STA Stop: 08/02/16 12:32 Last Admin: 08/02/16 13:00 Dose: 40 mg - Scribe Statement The provider has reviewed the documentation as recorded by the Shadi Palm Provider Coltonibe Attestation: All medical record entries made by the Shadi were at my direction and personally dictated by me. I have reviewed the chart and agree that the record accurately reflects my personal performance of the history, physical exam, medical decision making, and the department course for this patient. I have also personally directed, reviewed, and agree with the discharge instructions and disposition. Disposition/Present on Arrival - Present on Arrival Any Indicators Present on Arrival: No History of DVT/PE: No History of Uncontrolled Diabetes: No Urinary Catheter: No History of Decub. Ulcer: No History Surgical Site Infection Following: None - Disposition Have Diagnosis and Disposition been Completed?: Yes Diagnosis: Anemia Disposition: HOSPITALIZED Disposition Time: 14:06 Patient Plan: Admission, Telemetry Condition: FAIR Referrals: Fernando Baez MD [Primary Care Provider] - Follow up with primary
[2016-08-02 13:26] LABS: ALB/GLOB RATIO 1.2 (1.1-1.8); BILIRUBIN,TOTAL 0.6 mg/dL (0.2-1.3); CALCIUM 9.4 mg/dL (8.4-10.5); POTASSIUM 4.2 mmol/L (3.6-5.0); TOTAL PROTEIN 7.5 g/dL (5.8-8.3)
[2016-08-02 13:27] LABS: BASO # 0.08 K/mm3 (0.0-2.0); BASO % 1.6 % (0.0-3.0); EOS # 0.1 (0.0-0.7); GRAN # 3.81 (1.4-6.5); GRAN % 78.1 % (50.0-68.0); LYMPH # 0.6 (1.2-3.4); LYMPH % 11.9 % (22.0-35.0); MEAN CELL VOLUME 79.5 fL (80.0-105.0); MEAN CORPUSCULAR HEMOGLOBIN 24.3 pg (25.0-35.0); MEAN CORPUSCULAR HGB CONC 30.5 g/dl (31.0-37.0); MEAN PLATELET VOLUME 10.4 fl (7.0-11.0); MONO # 0.4 (0.1-0.6); MONO % 7.4 % (1.0-6.0); PLATELET COUNT 209 10^3/uL (120.0-450.0); RED CELL DISTRIBUTION WIDTH 18.6 % (11.5-14.5); WHITE BLOOD COUNT 4.9 10^3/ul (4.5-11.0)
[2016-08-02 13:33] LABS: INR 0.99 (0.93-1.08); PARTIAL THROMBOPLASTIN TIME 24.2 Seconds (23.7-30.8)
[2016-08-02 13:37] LABS: HEMATOCRIT 21.3 % (42.0-52.0)
[2016-08-02 13:38] LABS: TROPONIN I 0.02 ng/mL
[2016-08-02 14:45] VITALS: RESP 16
--- NOTE | 2016-08-02 14:57 | CARD ---
APPROVED REPORT EKG Measurement Heart [id number] <Conclusion> Normal sinus rhythm Nonspecific ST and T wave abnormality LVH.
[2016-08-02 15:54] VITALS: PULSE 84
[2016-08-02 17:25] VITALS: BP 171/75; TEMP 98.2
== END 2016-08-02 18:15 | disposition left against medical advice (07) ==
LOC: ED 11:51 → ERH 14:05 → UNDOADMIN 14:05 → ERH 17:20
DX: D64.9 Anemia, unspecified (principal); F17.210 Nicotine dependence, cigarettes, uncomplicated
CPT/HCPCS: 36430; 71010; 80053; 82550; 82728; 83550; 83615; 84484; 85025; 85610; 85730; 86850; 86900; 86920; 93005; 96374; 96375; 99283; C9113; J1940; J7040; P9016

== ENCOUNTER 2016-08-12 09:35 | Observation (INO) | payer MEDICARE, OTHER ==
[2016-08-12 09:35] VITALS: BMI 22.8
[2016-08-12 10:50] LABS: ADD MANUAL DIFF? NO
[2016-08-12 10:59] LABS: BASO % 1.9 % (0.0-3.0); EOS # 0.1 (0.0-0.7); EOS % 1.7 % (1.5-5.0); GRAN # 4.17 (1.4-6.5); GRAN % 81.1 % (50.0-68.0); HEMATOCRIT 25.2 % (42.0-52.0); LYMPH # 0.5 (1.2-3.4); LYMPH % 8.9 % (22.0-35.0); MEAN CELL VOLUME 86.6 fL (80.0-105.0); MEAN CORPUSCULAR HEMOGLOBIN 25.4 pg (25.0-35.0); MEAN CORPUSCULAR HGB CONC 29.4 g/dl (31.0-37.0); MONO # 0.3 (0.1-0.6); MONO % 6.4 % (1.0-6.0); PLATELET COUNT 218 10^3/uL (120.0-450.0); RED CELL DISTRIBUTION WIDTH 21.5 % (11.5-14.5); WHITE BLOOD COUNT 5.2 10^3/ul (4.5-11.0)
[2016-08-12 11:03] LABS: ALB/GLOB RATIO 1.2 (1.1-1.8); ALKALINE PHOSPHATASE 76 U/L (38-133); ALT/SGPT 29 U/L (7-56); AST/SGOT 24 U/L (15-59); BILIRUBIN,TOTAL 0.6 mg/dL (0.2-1.3); BLOOD UREA NITROGEN 24 mg/dL (7-21); CALCIUM 9.4 mg/dL (8.4-10.5); CARBON DIOXIDE 29 mmol/L (21-33); CHLORIDE 102 mmol/L (98-107); GFR AFRICAN-AMERICAN > 60; GLUCOSE,RANDOM 126 mg/dL (70-110); SODIUM 139 mmol/L (132-148); TOTAL PROTEIN 7.8 g/dL (5.8-8.3)
[2016-08-12 11:06] LABS: INR 0.99 (0.93-1.08); PARTIAL THROMBOPLASTIN TIME 24.4 Seconds (23.7-30.8)
--- NOTE | 2016-08-12 11:23 | ED PDOC ---
Arrival/HPI - General Chief Complaint: Abnormal Labs Time Seen by Provider: 08/12/16 09:47 Historian: Patient - History of Present Illness Narrative History of Present Illness (Text): 08/12/16 11:00 A 76 year old male, whose past medical history includes anemia and Gastrointestinal bleed, presents to the emergency department complaining of chronic mild fatigue. Patient reported a low Hemoglobin count after blood was drawn three days ago. Patient was given iron supplements at that time. Patient denies chest pain, shortness of breath, fever, cough or any other complaints at this time. Symptom Onset: Sudden Symptom Course: Unchanged Activities at Onset: Rest Context: Home Associated Symptoms (Text): none Past Medical History - Provider Review Nursing Documentation Reviewed: Yes - Past History Past History: No Previous - Infectious Disease Hx of Infectious Diseases: None - Tetanus Immunization Tetanus Immunization: Unknown - Cardiac Hx Cardiac Disorders: Yes Hx Angina: Yes Hx NC: Yes (x 2) - Pulmonary Hx Respiratory Disorders: No - Neurological Hx Neurological Disorder: No - HEENT Hx HEENT Disorder: No - Renal Hx Renal Disorder: No - Endocrine/Metabolic Hx Endocrine Disorders: No - Hematological/Oncological Hx Anemia: Yes - Integumentary Hx Dermatological Disorder: No - Musculoskeletal/Rheumatological Hx Falls: No - Gastrointestinal Hx Gastrointestinal Disorders: Yes Other/Comment: GI bleed - Genitourinary/Gynecological Hx Genitourinary Disorders: No - Psychiatric Hx Psychophysiologic Disorder: No Hx Substance Use: No - Surgical History 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) - Anesthesia Hx Anesthesia: Yes Hx Anesthesia Reactions: No Hx Malignant Hyperthermia: No - Suicidal Assessment Feels Threatened In Home Enviroment: No Family/Social History - Physician Review Nursing Documentation Reviewed: Yes Family/Social History: No Known Family HX Smoking Status: Light Smoker < 10 Cigarettes Daily Hx Alcohol Use: Yes (social) Amount per day: 2 Hx Substance Use: No Hx Substance Use Treatment: No Allergies/Home Meds Allergies/Adverse Reactions: Allergies shellfish derived Allergy (Severe, Verified 08/12/16 10:09) ANAPHYLAXIS iodine Allergy (Intermediate, Verified 08/12/16 10:09) SWELLING Iodine and Iodide Containing Produc Allergy (Intermediate, Verified 08/12/16 10: 09) SWELLING black pepper Allergy (Intermediate, Uncoded 08/12/16 10:09) SWELLING Home Medications: Home Meds Medication Instructions Recorded Confirmed Benazepril-Hctz -12.5 mg Tab 1 tab PO QAM 07/28/15 08/12/16 Lovastatin [Lovastatin] 20 mg PO QPM 07/28/15 08/12/16 Metoprolol Tartrate [Lopressor] 25 mg PO BID 07/28/15 08/12/16 raNITIdine 150 mg PO HS 12/20/15 08/12/16 Aspirin [Ecotrin] 81 mg PO DAILY 12/29/15 08/12/16 Docusate [Colace] 100 mg PO BID 02/12/16 08/12/16 Sucralfate [Carafate] 1 gm PO TID 02/12/16 08/12/16 Review of Systems - Physician Review All systems were reviewed & negative as marked: Yes - Review of Systems Constitutional: Fatigue (chronic mild). absent: Fevers Respiratory: absent: SOB, Cough Cardiovascular: absent: Chest Pain Physical Exam Vital Signs Reviewed: Yes Vital Signs Temp Pulse Resp BP Pulse Ox 08/12/16 13:37 82 16 156/61 H 100 08/12/16 13:32 97.9 F 81 16 138/68 08/12/16 13:17 97.8 F 78 16 138/68 08/12/16 13:12 99.1 F 63 18 127/57 L 08/12/16 12:10 74 18 141/62 100 08/12/16 12:00 76 18 141/62 99 08/12/16 10:54 74 16 146/67 100 08/12/16 10:04 98.2 F 82 18 144/62 100 Temperature: Afebrile Blood Pressure: Normal Pulse: Regular Respiratory Rate: Normal Appearance: Positive for: Well-Appearing, Non-Toxic, Comfortable Pain Distress: None Mental Status: Positive for: Alert and Oriented X 3 - Systems Exam Head: Present: Atraumatic, Normocephalic Pupils: Present: PERRL Extroacular Muscles: Present: EOMI Conjunctiva: Present: Other (pale) Mouth: Present: Moist Mucous Membranes Neck: Present: Normal Range of Motion Respiratory/Chest: Present: Clear to Auscultation, Good Air Exchange. No: Respiratory Distress, Accessory Muscle Use Cardiovascular: Present: Regular Rate and Rhythm, Normal S1, S2. No: Murmurs Abdomen: Present: Normal Bowel Sounds. No: Tenderness, Distention, Peritoneal Signs Upper Extremity: Present: Normal Inspection. No: Cyanosis, Edema Lower Extremity: Present: Normal Inspection. No: Edema Neurological: Present: GCS=15, CN II-XII Intact, Speech Normal Skin: Present: Warm, Dry, Normal Color. No: Rashes Psychiatric: Present: Alert, Oriented x 3, Normal Insight, Normal Concentration Medical Decision Making ED Course and Treatment: 08/12/16 11:21 Impression: A 76 year old male with low hemoglobin complaining of chronic mild fatigue. Differential Diagnosis included but are not limited to: anemia Plan: -- Labs -- Blood transfusion -- Reassess and disposition Prior Visits: Notes and results from previous visits were reviewed. Patient last reported to emergency department on for evaluation of weakness that felt similar to previous anemia symptoms. Patient was admitted to Telemetry. Progress Notes: 08/12/16 11:25 Spoke with Hematology and PMD. Case discussed with PMD who agrees to admit patient to remote Telemetry. Case discussed with hematology, who recommends to give patient 2 units of packed RBCs. - Lab Interpretations Lab Results: 08/12/16 10:35 08/12/16 10:35 Lab Results 08/12/16 10:35: Sodium 139, Potassium 4.0, Chloride 102, Carbon Dioxide 29, Anion Gap 12, BUN 24 H, Creatinine 1.3, Est GFR ( Amer) > 60, Est GFR ( Non-Af Amer) 54, Random Glucose 126 H, Calcium 9.4, Total Bilirubin 0.6, AST 24 , ALT 29, Alkaline Phosphatase 76, Total Protein 7.8, Albumin 4.3, Globulin 3.5 , Albumin/Globulin Ratio 1.2 08/12/16 10:35: PT 10.7, INR 0.99, APTT 24.4 08/12/16 10:35: WBC 5.2, RBC 2.91 L, Hgb 7.4 L, Hct 25.2 L, MCV 86.6, MCH 25.4, MCHC 29.4 L, RDW 21.5 H, Plt Count 218, MPV 11.0, Gran % 81.1 H, Lymph % (Auto) 8.9 L, [place] % (Auto) 6.4 H, Eos % (Auto) 1.7, Baso % (Auto) 1.9, Gran # 4.17, Lymph # 0.5 L, [place] # 0.3, Eos # 0.1, Baso # 0.10 08/12/16 10:15: Blood Type A POSITIVE, Antibody Screen Negative, Crossmatch See Detail, BBK History Checked Patient has bt I have reviewed the lab results: Yes - Scribe Statement The provider has reviewed the documentation as recorded by the Scribe Brandon Leihg All medical record entries made by the Scribe were at my direction and personally dictated by me. I have reviewed the chart and agree that the record accurately reflects my personal performance of the history, physical exam, medical decision making, and the department course for this patient. I have also personally directed, reviewed, and agree with the discharge instructions and disposition. Disposition/Present on Arrival - Present on Arrival Any Indicators Present on Arrival: No History of DVT/PE: No History of Uncontrolled Diabetes: No Urinary Catheter: No History of Decub. Ulcer: No History Surgical Site Infection Following: None - Disposition Have Diagnosis and Disposition been Completed?: Yes Diagnosis: GI bleed, Anemia Disposition: HOSPITALIZED Disposition Time: 11:30 Condition: STABLE
[2016-08-12 13:37] VITALS: O2SAT 100
[2016-08-12] MEDS ORDERED: Pneumococcal 23-Valent Vaccine IM ONE (16:01)
[2016-08-12 17:46] VITALS: RESP 20
[2016-08-12 19:25] VITALS: BP 184/86; PULSE 80; TEMP 98.7
--- NOTE | 2016-08-12 20:17 | CP.PCM.PN ---
Subjective - Date & Time of Evaluation Date of Evaluation: 08/12/16 Time of Evaluation: 20:13 - Subjective Subjective: Patient evaluated upon request of nurse for leaving against medical advice. Patient has know history of anemia suspected form gi blood loss, and has h/o leaving hospital post blood transfusion. Patient at the time of eval was alert and oriented and not in distress. Signs AMA sheet, patient informed about risk details in the sheet. PMD made aware by nursing about the event. Objective - Vital Signs/Intake and Output Vital Signs (last 24 hours): Temp Pulse Resp BP Pulse Ox 98.7 F 80 20 184/86 H 100 08/12/16 19:24 08/12/16 19:24 08/12/16 19:24 08/12/16 19:24 08/12/16 13:37 Intake and Output: 08/12/16 08/13/16 18:59 06:59 Intake Total 315 325 Balance 315 325 - Medications Medications: Current Medications Atorvastatin Calcium (Lipitor) 10 mg PO DIN [facility] Last Admin: 08/12/16 17:48 Dose: 10 mg Famotidine (Pepcid) 20 mg PO BID [facility] Home Med (Home Med) 1 unit PO DAILY [facility] Metoprolol Tartrate (Lopressor) 25 mg PO BID [facility] Last Admin: 08/12/16 17:48 Dose: 25 mg - Labs Labs: PT 10.7 Seconds (9.9-11.8) 08/12/16 10:35 INR 0.99 (0.93-1.08) 08/12/16 10:35 APTT 24.4 Seconds (23.7-30.8) 08/12/16 10:35
--- NOTE | 2016-08-12 21:34 | CON ---
DATE: 08/12/2016 This patient was seen and evaluated earlier today. The patient was admitted this time with a hemoglobin of 7.4. This patient comes in with weakness and he was weak. He has a history of coronary artery disease. In view of the significant coronary artery disease and severe anemia, had received multiple transfusions. The patient was admitted. The patient is poorly compliant and did not followup. The patient had an endoscopy and a colonoscopy done before, and had multiple angiodysplasias which were treated. The last plan was to have a capsule endoscopy done and then followup of the push enteroscopy after that. The patient anemia. The patient came to the Emergency Room. He denies any vomiting of blood. Has a history of intermittent black stools present. The patient had multiple endoscopies done and angiodysplasias of the jejunum was treated and the patient also had a colonoscopy and had cecal angiodysplasias treated. The patient is due to have a capsule endoscopy and double balloon enteroscopy following that based on the finding. The patient was poorly complaint and did not follow up regularly. The patient has been seen by DrCaroline . The patient did not complain with the capsule endoscopy and followup. OTHER PAST MEDICAL HISTORY: Is significant as above. SOCIAL HISTORY: Denies smoking or alcohol. ALLERGIES: TO SHELLFISH, IODINE. LABORATORY DATA: Hemoglobin 7.4, hematocrit 25.2, WBC 5.2, platelets 218. IMPRESSION: Gastrointestinal bleeding, history of multiple angiodysplasia, status post treatment, coronary artery disease, poor compliance before. PLAN: The patient is now in the hospital. I had a detailed discussion with the patient and also Dr. Mathis and also with Dr. Sedrick Baez. If the patient stays in the hospital, we will consider repeating the double balloon push enteroscopy. The patient would benefit from outpatient capsule endoscopy followed by double balloon examination based on the clinical course. The importance of his cooperation was explained to the patient clearly and he threatened to sign out AMA, but I told him the risk and seriousness of the problem including sudden has been explained and the patient fully understood. Kenny Germain MD cc: [id number] TT: 08/12/2016 21:33:37 Confirmation # [id number] Dictation # [id number] dn KLAUS
--- NOTE | 2016-08-12 23:32 | CON ---
DATE: 08/12/2016 REASON FOR CONSULTATION: Elderly male with significant anemia, hemoglobin of 6.4 g in the office. R eceived 2 doses of IV iron and came to the Emergency Room because he was feeling tired and more exhau sted, and found to have a hemoglobin of 7.4. This patient is in the process of being typed and cross ed for 2 units of blood. He is already getting the first unit. HISTORY OF PRESENT ILLNESS: The patient comes in with weakness. He has history of coronary artery d isease with significant coronary artery disease and severe anemia. The patient has required several multiple transfusions. He has been admitted in the past. The patient is very poorly compliant. Tabor s not come for followup. An endoscopy and colonoscopy done before, in 02/2016, found to have multipl e angiodysplasias, both in the upper gastrointestinal tract and in the colon, which were treated with argon laser plasma. The last time was to do a capsule endoscopy and then follow up with a push ente roscopy. The patient has not had any either one of those procedures done yet. The patient came to the Emergency Room. He denied any history of nausea, vomiting, hematochezia. Th ere is history of intermittent black stools in the past. The patient has had multiple endoscopies do ne and angiodysplasias of the jejunum was treated and patient had a colonoscopy and had cecal angiody splasias. The patient is very poorly compliant and does not follow the recommendations of the [facility] s doctors seeing him. PAST MEDICAL HISTORY: Significant as above. SOCIAL HISTORY: The patient does not smoke or drink alcohol. ALLERGIES: ALLERGIC TO SHELLFISH AND IODINE. LABORATORY DATA: Reveals a hemoglobin of 7.4; hematocrit 25; white count is 5.2; platelet count 280, 000. ASSESSMENT NOTES AND PLAN: The patient has significant anemia in the background history of coronary artery disease, status post coronary artery bypass surgery. The patient received 2 doses of IV iron in the office and his hemoglobin from 6.8 went to 7.4. I told the patient that he should at least st ay in the hospital for a push enteroscopy and to have a capsule endoscopy done later. Every time he comes for endoscopy they end up canceling it because of the hemoglobins being on the low side. Since he had transfusion 2 units, usually his transfusion lasts about 3 or 4 weeks. Told him to get the p rocedures done in the short window that he has. The patient is going to see us next week after finis shaquille the blood transfusion here. I assured him that we will check the blood work unless we give him additional IV line, but he should schedule himself for an outpatient endoscopy and push enteroscopy. The patient has agreed to that and we both, myself and Dr. Germain, spoke to him at great length ab out the risk of blood transfusion and, not only the risk of infection, but risk of cardiac changes, a s well from the byproducts of the cells within the transfused blood. The importance of his cooperati on was explained to the patient clearly and he threatened to sign out against medical advice, but we have told him the risk of a serious other problem, including sudden . The patient understands i t and he wants to go home after this transfusion is completed, and he promises us to come and see us again as an outpatient, checking the CBC and probably to give him more iron, as well. I spoke to Dr. Baez, the primary attending, as well. The patient is competent enough that he can make his own decisions what he wants to be done. Hank Mathis MD cc: [id number] TT: 08/12/2016 23:32:00 Confirmation # [id number] Dictation # [id number] tatianna
--- NOTE | 2016-08-13 09:39 | HP ---
HISTORY OF PRESENT ILLNESS: The patient is a 76-year-old male who has a history of repeated bouts of anemia. His GI workup with Dr. 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 These were cauterized in the past; however, there seems to continue to be more and more AVMs to be cauterized. The patient has been scheduled for videoendoscopy in the past; however, for one reason or another, because of transportation because of scheduling, because of need to care for his , the videoendoscopy was never performed. The patient on the 's suggestion was evaluated by the boat engines installer, Dr. Mathis, last week. His hemoglobin was 6.4 at that time. He was transfused intravenous iron and was told to follow up on today. When the patient followed up his hemoglobin was up to 7.4. He was ordered 2 units of packed red blood cells with the hope that the patient will undergo repeat endoscopy with a push as far as possible through the small intestine to evaluate probable other AVMs to be cauterized. The case was discussed at length with Dr. Germain, the clay molder, and with Dr. Mathis, both who were on the floor when the patient was evaluated. PAST MEDICAL HISTORY: Positive for coronary artery disease and hypertension. He is status post quadruple coronary bypass grafting in 2005. He suffered a crush injury to his right foot in the distant past. He fractured 2 ribs in a slip and fall about 2 years ago. SOCIAL HISTORY: He formerly smoked 2 packs a day. He claims that recently he smokes less. He does drink a few beers a day, 2 cups of coffee a day. He is and very concerned about his 's health. ALLERGIES: HE IS KNOWN TO BE ALLERGIC TO IODINE CONTAINING COMPOUNDS. He has no other medical allergies. MEDICATIONS: At the time of admission included metoprolol, benazepril, hydrochlorothiazide, lovastatin, aspirin and iron supplements. PHYSICAL EXAMINATION: GENERAL: The patient is awake, alert, and oriented. He is standing at bedside talking to his on the phone. He is receiving his second unit of packed red blood cells. HEENT: Unremarkable. NECK: Supple. There is no lymphadenopathy, no goiter. LUNGS: Clear to auscultation and percussion. HEART: Sounds are regular with no murmur appreciated. ABDOMEN: Soft and nontender. EXTREMITIES: Free of cyanosis, clubbing or edema. Once again, videoendoscopy was discussed with the patient. The patient had agreed to it before; however, now feels that he must once again return home after the transfusion. The patient was urged to stay to complete the workup and hopefully finalize these repeated bouts of anemia due to what is thought to be arteriovenous malformations lining the digestive tract, especially the small intestines. We will follow the patient closely; hopeful he will comply and undergo endoscopy in the morning. Edrazia Baez MD cc: [id number] TT: 08/13/2016 09:38:44 avtar ENRIQUE
[2016-08-13] MEDS ORDERED: BENAZEPRIL HCTZ PO SCH (10:00)
--- NOTE | 2016-09-16 21:43 | DS ---
The patient is a 76-year-old male with a history of repeated bouts of anemia. GI workup was rather extensive by Dr. Germain, which showed several AVMs in the jejunum and the cecum. These were cauterized in the past; however, the patient continues to repeated bouts of anemia. He had been scheduled for a video endoscopy in the past; however, for one reason or another, this could not be performed as the patient would not be able to the test site. He was evaluated by Dr. Mathis, the oncologist, who found his hemoglobin to be 6.4, at that time, a week earlier. He was transfused intravenous iron and was suggested to followup. On the day of admission when his hemoglobin was 7.4, and he ordered 2 units of packed red blood cells to be transfused. 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
== END 2016-08-12 20:46 | disposition left against medical advice (07) ==
LOC: ED 09:35 → INTOOBSV 11:32 → ERH 11:32 → 3RSO 14:09
PROVIDERS: ADMIT Internal Medicine; ATTEND Internal Medicine
DX: K92.2 Gastrointestinal hemorrhage, unspecified (principal); D64.9 Anemia, unspecified; Q27.33 Arteriovenous malformation of digestive system vessel; I10 Essential (primary) hypertension; F17.200 Nicotine dependence, unspecified, uncomplicated; I25.2 Old myocardial infarction; Z79.82 Long term (current) use of aspirin; Z79.899 Other long term (current) drug therapy; Z91.19 Patient's noncompliance with other medical treatment and regimen; Z95.1 Presence of aortocoronary bypass graft; I25.119 Atherosclerotic heart disease of native coronary artery with unspecified angina pectoris; Z87.892 Personal history of anaphylaxis; Z88.8 Allergy status to other drugs, medicaments and biological substances; Z91.013 Allergy to seafood; Z91.018 Allergy to other foods; R40.2412 Glasgow coma scale score 13-15, at arrival to emergency department; Z87.81 Personal history of (healed) traumatic fracture
CPT/HCPCS: 36430; 80053; 85025; 85610; 85730; 86850; 86900; 86920; 99285; G0378; P9016

== ENCOUNTER 2017-06-17 09:44 | Day surgery (SDC) | payer BC, MEDICARE ==
[2017-06-06 12:27] VITALS: BMI 22.2
[2017-06-17] MEDS ORDERED: Propofol 10 mg/ml Inj (20 ML) ONE (11:01)
[2017-06-17] MEDS ORDERED: ePHEDrine 50 mg/ml Inj ONE (11:25)
[2017-06-17] MEDS ORDERED: Sodium Chloride 0.9% 1,000 ML IV SCH (12:15)
[2017-06-17 13:32] VITALS: BP 122/63; PULSE 77; RESP 16; TEMP 97.6; O2SAT 100
== END 2017-06-17 14:17 | disposition home or self-care (01) ==
LOC: ENDO 09:44
PROVIDERS: ATTEND Internal Medicine Gastroenterology
DX: K25.9 Gastric ulcer, unspecified as acute or chronic, without hemorrhage or perforation (principal); K21.9 Gastro-esophageal reflux disease without esophagitis; K44.9 Diaphragmatic hernia without obstruction or gangrene; K29.50 Unspecified chronic gastritis without bleeding; K29.80 Duodenitis without bleeding; D50.9 Iron deficiency anemia, unspecified; Z12.11 Encounter for screening for malignant neoplasm of colon; D12.2 Benign neoplasm of ascending colon; D12.5 Benign neoplasm of sigmoid colon; K62.1 Rectal polyp; K57.30 Diverticulosis of large intestine without perforation or abscess without bleeding; K64.8 Other hemorrhoids; I25.10 Atherosclerotic heart disease of native coronary artery without angina pectoris
CPT/HCPCS: 43239; 45380; 88305; 88312; 88342; J2001; J2704; J7040 ×2